=== PATIENT | male | born 1940 | race Caucasian/White ===

== ENCOUNTER 2018-06-11 16:13 | Inpatient (IN) | payer MEDICARE ==
[~2018-06-11] VITALS: Ht 177.8 cm; Wt 49.9 kg
[2018-06-11] MEDS ORDERED: Z GUARD REMEDY PASTE 57 GM TUBE TOP PRN (17:15)
[2018-06-11] MEDS ORDERED: FINA5TAB11 PO (18:07)
[2018-06-11] MEDS ORDERED: AMLO10TA6 PO (18:07)
[2018-06-11] MEDS ORDERED: ASPI-1169 PO (18:07)
[2018-06-11] MEDS ORDERED: METO25TA6 PO ×2 (18:07→18:34)
[2018-06-11] MEDS ORDERED: LOSA25TA13 PO (18:07)
[2018-06-11] MEDS ORDERED: OMEP20CA10 PO (18:07)
[2018-06-11] MEDS ORDERED: CHOL10002 PO (18:07)
[2018-06-11] MEDS ORDERED: ALFU10TA10 PO (18:07)
[2018-06-11] MEDS ORDERED: ACET-2154 PO (18:34)
[2018-06-11] MEDS ORDERED: RIVA10TA PO (18:34)
[2018-06-11] MEDS ORDERED: ZOLP5TAB2 PO (18:34)
[2018-06-11] MEDS ORDERED: MAGN400O6 PO ×2 (18:34)
[2018-06-11] MEDS ORDERED: PANT40TA4 PO (18:34)
--- NOTE | 2018-06-11 18:59 | NUR ---
SBAR report received from Odalys KLEIN at [facility]. Pt received via gurney and transferred safely to bed. Bed in locked and lowest position with side rails up x2, bed alarm on. Pt denies pain at this time, due to last PRN Oxy 5mg administered at 1601 prior to transfer. VSS 134/63, 94, 98.8,20,97% RA. Pt assessed, no acute distress or SOB noted. Pt skin is intact except for previous scar center abdominal midline of abdomen from h/o AAA repair in 2000, current surgical incision to right hip with dressing intact from Right Hip Replacement on 06/[address] Griffith, and BLLE altered skin integrity. Surgical dressing orders endorsed to change PRN soiling and daily. Follow up appointment needed with Dr. Griffith in 2 weeks for wound check and right hip XRay evaluation. Pt on Xarelto 10mg since 06/10 ordered to continue for 4 weeks then switch to ASA only. Pt oriented to room and unit with . ID band placed on right wrist. MRSA swab collected and sent to lab. Pt seen by Dr. Bates and pain regimen discussed, new orders received. Call light placed within reach. Board updated. Will continue to monitor and endorse to oncoming billiard table assembler nurse.
--- NOTE | 2018-06-11 19:15 | NUR ---
Received patient in bed. Alert and verbally responsive. Able to make needs known. Denies any pain and discomfort. No acute distress. No SOB. Kept clean and dry. Abductor pillow in place. All needs attended to promptly. Call light within reach. Will continue to monitor.
[2018-06-11] MEDS ORDERED: ZOLPIDEM 5 MG TABLET PO PRN (19:45)
[2018-06-11 20:00] VITALS: BP 129/68
[2018-06-11] MEDS: ALFUZOSIN HCL 10 MG TAB.SR.24H PO SCH (20:43)
[2018-06-11] MEDS: METOPROLOL TARTRATE 25 MG TABLET PO SCH (20:43)
[2018-06-12] MEDS: HYDROCODONE/APAP 5-325MG TABLET PO PRN ×3 (02:59→13:17)
[2018-06-12 04:00] VITALS: BP 137/69
[2018-06-12 08:03] VITALS: BP 126/56
--- NOTE | 2018-06-12 08:03 | NUR ---
Received pt. in bed with eyes open. A/OX4 and able to make his needs known. Pt. in no acute distress, denies CP or SOB at this time. C/O 04/08 (P.S) on RT. hip, PRN norco administered as order. Pt. stated "I wan't Oxycodone instead of Celeste" Discussed and explained to pt. that this card writer hand will discuss pain regimen with MD accordingly. pt. amenable at this time. All pt. needs promptly attended. Safety measures and precaution in place. Call light and all frequently used items within pt. reach. Will monitor pt. accordingly.
[2018-06-12] MEDS: CHOLECALCIFEROL 1,000 UNIT TABLET PO SCH (08:13)
[2018-06-12] MEDS: FINASTERIDE 5 MG TABLET PO SCH (08:13)
[2018-06-12] MEDS: AMLODIPINE 10 MG TABLET PO SCH (08:14)
[2018-06-12] MEDS: ASPIRIN 81 MG TAB.CHEW PO SCH (08:14)
[2018-06-12] MEDS: METOPROLOL TARTRATE 25 MG TABLET PO SCH ×2 (08:15→20:45)
[2018-06-12] MEDS: LOSARTAN POTASSIUM 25 MG TABLET PO SCH (08:15)
[2018-06-12] MEDS ORDERED: PANTOPRAZOLE SODIUM 40 MG TABLET.DR PO SCH (09:00)
--- NOTE | 2018-06-12 13:37 | NUR ---
Received order from Dr. Bates to D/C Syeda order and start pt. on OxyIR 5 mg po q4h prn for pain. Orders noted and carried out. Pt. made aware and thankful.
[2018-06-12 15:00] VITALS: BP 108/47
[2018-06-12] MEDS: RIVAROXABAN 10 MG TABLET PO SCH (17:46)
--- NOTE | 2018-06-12 18:55 | NUR ---
EOS NOTE: No significant change during this shift. All pt. need attended. All due medications given as ordered. No c/o SOB or CP. Safety measures in place. Call light and all frequently used items in reach. Will endorse to oncoming shift.
[2018-06-12 19:30] VITALS: BP 120/50
[2018-06-12] MEDS: ALFUZOSIN HCL 10 MG TAB.SR.24H PO SCH (20:18)
[2018-06-12] MEDS: OXYCODONE HCL 5 MG TABLET PO PRN (20:20)
[2018-06-13] MEDS: OXYCODONE HCL 5 MG TABLET PO PRN ×4 (03:16→20:09)
[2018-06-13 04:00] VITALS: BP 115/51
[2018-06-13 04:19] LABS: *BILIRUBIN,URIN NEGATIVE (NEGATIVE); *BLOOD, URINE NEGATIVE (NEGATIVE); *CLARITY,URINE CLEAR (CLEAR); *COLOR,URINE YELLOW (YELLOW); *KETONES,URINE NEGATIVE (NEGATIVE); *PROTEIN,URINE TRACE (NEGATIVE); LEUKOCYTE ESTERASE ,URINE NEGATIVE (NEGATIVE); NITRITE, URINE NEGATIVE (NEGATIVE); PH,URINE 7.5 (5.0-8.0); UGLUCOSE NEGATIVE (NEGATIVE)
[2018-06-13 04:26] LABS: BACTERIA,URINE NONE SEEN /HPF (NONE SEEN); RBC,URINE 0-3 /HPF (0-3); SQUAMOUS EPITHELIAL CELL,UR FEW /HPF (NONE SEEN); WBC,URINE 0-3 /HPF (0-3)
[2018-06-13] MEDS: MAGNESIUM HYDROXIDE 30 ML LIQUID UDC PO PRN (06:15)
[2018-06-13] MEDS: PANTOPRAZOLE SODIUM 40 MG TABLET.DR PO SCH (06:16)
[2018-06-13 07:11] LABS: BASOPHILS % (AUTO) 0.4 % (0.0-2.0); EOSINOPHILS # (AUTO) 0.2 K/uL (0.0-0.7); HEMATOCRIT 23.9 % (36.7-47.1); HEMOGLOBIN 8.4 g/dL (12.5-16.3); LYMPHOCYTES # (AUTO) 1.1 K/uL (20.0-40.0); LYMPHOCYTES % (AUTO) 14.3 % (20.5-51.5); MEAN CORPUSCULAR HEMOGLOBIN 34.5 uug (23.8-33.4); MEAN CORPUSCULAR HGB CONC 35 g/dL (32.5-36.3); MEAN CORPUSCULAR VOLUME 98.6 fL (73.0-96.2); MONOCYTES # (AUTO) 0.8 K/uL (2.0-10.0); MONOCYTES % (AUTO) 10.5 % (0.0-11.0); NEUTROPHILS # (AUTO) 5.3 K/uL (1.8-8.9); NEUTROPHILS % (AUTO) 71.8 % (38.5-71.5); PLATELET COUNT (AUTO) 164 K/uL (152-348); WHITE BLOOD COUNT (AUTO) 7.4 K/uL (3.6-10.2)
[2018-06-13 07:20] LABS: RED BLOOD CELL COUNT(AUTO) 2.42 MIL/uL (4.06-5.63)
[2018-06-13 07:36] LABS: IRON, SERUM 30 ug/dL (50-175)
[2018-06-13 07:59] LABS: ALANINE AMINOTRANSFERASE 73 U/L (16-63); ALKALINE PHOSPHATASE 95 U/L (50-136); ASPARTATE AMINOTRANSFERASE 73 U/L (15-37); BILIRUBIN,TOTAL 1.3 mg/dL (0.2-1.0); CARBON DIOXIDE 33 mmol/L (21-32); CHLORIDE 100 mmol/L (98-107); CHOLESTEROL 87 mg/dL (<200); CREATININE 1.3 mg/dL (0.6-1.3); GLUCOSE 128 mg/dL (74-106); HDL CHOLESTEROL 37 mg/dL (40-60); MAGNESIUM 1.9 mg/dL (1.8-2.4); PHOSPHOROUS 2.7 mg/dL (2.5-4.9); POTASSIUM 3.5 mmol/L (3.5-5.1); TOTAL PROTEIN, SERUM 5.6 g/dL (6.4-8.2); TRIGLYCERIDES 64 MG/DL (30-150); UREA NITROGEN, BLOOD 27 mg/dL (7-18)
[2018-06-13 08:25] LABS: THYROID STIMULATING HORMONE 3.353 mIU/mL (0.358-3.740)
[2018-06-13] MEDS: AMLODIPINE 10 MG TABLET PO SCH (08:25)
[2018-06-13] MEDS: ASPIRIN 81 MG TAB.CHEW PO SCH (08:25)
[2018-06-13] MEDS: CHOLECALCIFEROL 1,000 UNIT TABLET PO SCH (08:25)
[2018-06-13] MEDS: LOSARTAN POTASSIUM 25 MG TABLET PO SCH (08:25)
[2018-06-13] MEDS: FINASTERIDE 5 MG TABLET PO SCH (08:25)
[2018-06-13] MEDS: METOPROLOL TARTRATE 25 MG TABLET PO SCH ×2 (08:26→20:08)
--- NOTE | 2018-06-13 09:08 | NUR ---
Received pt. in bed, A/OX4. Pt. able to make his needs known. Comfortable in no acute distress. All pt. needs attended promptly. Safety measures and precaution in place. Call light and all frequently used items within pt. reach. C/O Rt. hip pain (4/10 p.s) OxyIR given as ordered. All due AM medications given as ordered and tolerated well. Will obtain order from MD. Will continue to monitor pt. accordingly
[2018-06-13 11:02] VITALS: BP 118/61
[2018-06-13] MEDS: CYANOCOBALAMIN 1000 MCG/ML VIAL IM SCH (11:41)
[2018-06-13 16:04] VITALS: BP 113/51
[2018-06-13] MEDS: RIVAROXABAN 10 MG TABLET PO SCH (17:25)
--- NOTE | 2018-06-13 18:05 | NUR ---
EOS NOTE: No significant change during this shift. All pt. need attended and met. All due medications given as ordered. No c/o SOB or CP. Pt. participated with PT/OT/ST, tolerated well. Kept pt. clean and dry throughout this shift. Rt. hip surgical dressing change as ordered, no s/sx of infection at surgical site. Obtained order from Dr. Bates for RT. hip x-ray for f/u appointment on 06/17/[address] Griffith (Ortho). Hgb/Hct 8.4/23.[address] Robles with new order for EKG and VIT b12 IM. Family visited pt. today for emotional support. Safety measures in place. Call light and all frequently used items in reach. Will endorse to oncoming shift.
[2018-06-13] MEDS: ALFUZOSIN HCL 10 MG TAB.SR.24H PO SCH (20:08)
[2018-06-13 20:21] VITALS: BP 117/54
[2018-06-13] MEDS: ACETAMINOPHEN 325 MG TABLET PO PRN (21:40)
[2018-06-14 05:00] VITALS: BP 118/55
[2018-06-14] MEDS: PANTOPRAZOLE SODIUM 40 MG TABLET.DR PO SCH (06:05)
[2018-06-14] MEDS: ASPIRIN 81 MG TAB.CHEW PO SCH (08:12)
[2018-06-14] MEDS: FINASTERIDE 5 MG TABLET PO SCH (08:17)
[2018-06-14] MEDS: METOPROLOL TARTRATE 25 MG TABLET PO SCH ×2 (08:18→20:42)
[2018-06-14] MEDS: CHOLECALCIFEROL 1,000 UNIT TABLET PO SCH (08:19)
[2018-06-14] MEDS: OXYCODONE HCL 5 MG TABLET PO PRN ×3 (08:19→20:47)
[2018-06-14] MEDS: LOSARTAN POTASSIUM 25 MG TABLET PO SCH (08:19)
[2018-06-14] MEDS: CYANOCOBALAMIN 1000 MCG/ML VIAL IM SCH (08:20)
[2018-06-14] MEDS: AMLODIPINE 10 MG TABLET PO SCH (08:20)
[2018-06-14 08:29] VITALS: BP 110/57
--- NOTE | 2018-06-14 09:23 | NUR ---
Patient continue pain management for right hip fracture. Shower done with OT. refuse therapy this AM, verbalize," i feel weak". MD Bates aware. ordered CBC and BMP. not in distress. will continue monitor
[2018-06-14 12:31] LABS: BASOPHILS % (AUTO) 0.2 % (0.0-2.0); EOSINOPHILS # (AUTO) 0.1 K/uL (0.0-0.7); EOSINOPHILS % (AUTO) 1.2 % (0.0-7.0); HEMATOCRIT 23.4 % (36.7-47.1); HEMOGLOBIN 8.3 g/dL (12.5-16.3); MEAN CORPUSCULAR HEMOGLOBIN 34.5 uug (23.8-33.4); MEAN CORPUSCULAR HGB CONC 35 g/dL (32.5-36.3); MEAN CORPUSCULAR VOLUME 97.9 fL (73.0-96.2); NEUTROPHILS # (AUTO) 8.8 K/uL (1.8-8.9); NEUTROPHILS % (AUTO) 80.6 % (38.5-71.5); PLATELET COUNT (AUTO) 225 K/uL (152-348); WHITE BLOOD COUNT (AUTO) 10.9 K/uL (3.6-10.2)
[2018-06-14 12:32] LABS: RED BLOOD CELL COUNT(AUTO) 2.39 MIL/uL (4.06-5.63)
[2018-06-14 12:37] LABS: CARBON DIOXIDE 29 mmol/L (21-32); CHLORIDE 100 mmol/L (98-107); CREATININE 1.3 mg/dL (0.6-1.3); GLUCOSE 138 mg/dL (74-106); POTASSIUM 4.2 mmol/L (3.5-5.1); UREA NITROGEN, BLOOD 28 mg/dL (7-18)
--- NOTE | 2018-06-14 13:37 | NUR ---
INTERDISCIPLINARY TEAM CONFERENCE
[2018-06-14 16:32] VITALS: BP 103/50
[2018-06-14] MEDS: RIVAROXABAN 10 MG TABLET PO SCH (17:19)
[2018-06-14 20:00] VITALS: BP 118/58
[2018-06-14] MEDS: ALFUZOSIN HCL 10 MG TAB.SR.24H PO SCH (20:42)
--- NOTE | 2018-06-14 21:40 | NUR ---
Received pt in bed and watching TV. AAO x4. No acute distress noted. VSS. C/o pain on lower back. PRN oxyir given as ordered. Abduction pillow in placed. Slightly turned and repositioned using pillow under the back. Safety measures maintained. Call light and personal belongings within reach. Will continue to monitor.
[2018-06-15 05:00] VITALS: BP 115/57
[2018-06-15] MEDS: PANTOPRAZOLE SODIUM 40 MG TABLET.DR PO SCH (06:27)
[2018-06-15 08:01] VITALS: BP 119/52
[2018-06-15] MEDS: CHOLECALCIFEROL 1,000 UNIT TABLET PO SCH (08:55)
[2018-06-15] MEDS: OXYCODONE HCL 5 MG TABLET PO PRN ×2 (08:55→15:53)
[2018-06-15] MEDS: AMLODIPINE 10 MG TABLET PO SCH (08:56)
[2018-06-15] MEDS: LOSARTAN POTASSIUM 25 MG TABLET PO SCH (08:56)
[2018-06-15] MEDS: ASPIRIN 81 MG TAB.CHEW PO SCH (08:56)
[2018-06-15] MEDS: FINASTERIDE 5 MG TABLET PO SCH (08:56)
[2018-06-15] MEDS: CYANOCOBALAMIN 1000 MCG/ML VIAL IM SCH (08:56)
[2018-06-15] MEDS: METOPROLOL TARTRATE 25 MG TABLET PO SCH (09:51)
--- NOTE | 2018-06-15 11:23 | NUR ---
Patient laboratory result HGB 8.3 WBC 10.9 relayed to MD Robles. no new order. no dark urine observed as of this time. will continue monitor
[2018-06-15] MEDS: ACETAMINOPHEN 325 MG TABLET PO PRN (12:38)
--- NOTE | 2018-06-15 13:23 | NUR ---
Patient continue on pain management with good effect. not in distress. dressing change done with no signs of infection noted. will continue monitor
[2018-06-15 16:28] VITALS: BP 112/59
[2018-06-15] MEDS: RIVAROXABAN 10 MG TABLET PO SCH (17:10)
--- NOTE | 2018-06-15 18:19 | NUR ---
sodium 134 result relayed to MD. no new order. no complaint of pain/discomfort. not in distress. will continue monitor
--- NOTE | 2018-06-15 19:30 | NUR ---
Hand-off report received from Radhika KLEIN with bedside inspection. Pt resting without complaint. Right hip dressing CDI. Denies any numbness and tingling in extremities X4.
[2018-06-15 19:52] VITALS: BP 103/51
--- NOTE | 2018-06-15 23:30 | NUR ---
Oxycodone 1 tab for stated right hip pain 12/06. Uses urinal noted dark brown urine approx. 150 to 200 cc each time. Denies burning or pain with urination.
[2018-06-15] MEDS: ALFUZOSIN HCL 10 MG TAB.SR.24H PO SCH (23:47)
[2018-06-16] MEDS: METOPROLOL TARTRATE 25 MG TABLET PO SCH ×3 (00:27→21:00)
[2018-06-16 05:40] VITALS: BP 108/53
[2018-06-16] MEDS: PANTOPRAZOLE SODIUM 40 MG TABLET.DR PO SCH (06:35)
--- NOTE | 2018-06-16 07:15 | NUR ---
Hand-off report given to Ilya KLEIN who assumed care of pt at this time. Pt awake in bed watching TV without complaint.
[2018-06-16 08:01] VITALS: BP 110/51
[2018-06-16] MEDS: CHOLECALCIFEROL 1,000 UNIT TABLET PO SCH (08:14)
[2018-06-16] MEDS: FINASTERIDE 5 MG TABLET PO SCH (08:14)
[2018-06-16] MEDS: CYANOCOBALAMIN 1000 MCG/ML VIAL IM SCH (08:14)
[2018-06-16] MEDS: ASPIRIN 81 MG TAB.CHEW PO SCH (08:14)
[2018-06-16] MEDS: AMLODIPINE 10 MG TABLET PO SCH (08:17)
[2018-06-16] MEDS: LOSARTAN POTASSIUM 25 MG TABLET PO SCH (08:17)
[2018-06-16] MEDS: OXYCODONE HCL 5 MG TABLET PO PRN ×2 (09:09→13:47)
--- NOTE | 2018-06-16 09:22 | NUR ---
Received pt. in bed, A/OX4 verbally responsive and able to make his needs known. Comfortable in no acute distress. All pt. needs attended promptly. Safety measures and precaution in place. Call light and all frequently used items within pt. reach. C/O Rt. hip pain (9/10 p.s) OxyIR given as ordered. All due AM medications given as ordered and tolerated well. Will continue to monitor pt. accordingly
[2018-06-16 16:06] VITALS: BP 98/43
[2018-06-16] MEDS: RIVAROXABAN 10 MG TABLET PO SCH (17:30)
--- NOTE | 2018-06-16 18:33 | NUR ---
EOS NOTE: No significant change during this shift. All pt. need attended and met. All due medications given as ordered. No c/o SOB or CP. Pt. participated with PT/OT, tolerated well. Kept pt. clean and dry throughout this shift. Rt. hip surgical dressing change as ordered, no s/sx of infection at surgical site. RT. hip x-ray done today for f/u appointment on 06/17/[address] Griffith (Ortho). Family visited pt. today for emotional support. Safety measures in place. Call light and all frequently used items in reach. Will endorse to oncoming shift.
--- NOTE | 2018-06-16 19:20 | NUR ---
Hand-Off Report received from Ilya KLEIN. Assumed care of pt at this time.
[2018-06-16 20:20] VITALS: BP 102/55
--- NOTE | 2018-06-16 20:30 | NUR ---
Denies right hip pain. Right lateral thigh dressing clean dry and intact. B/P 102/55. Pt. education concerning effects of Uroxatral and Lopressor combined. Plan: to hold Lopressor per doctor parameters for SBP<100. Pt stated understood. Denies any signs and symptoms of light-headedness etc. Enc. hydration. Denies chest pain or SOB. Continue to monitor and assist as needed.
[2018-06-16] MEDS: ALFUZOSIN HCL 10 MG TAB.SR.24H PO SCH (22:12)
--- NOTE | 2018-06-17 05:30 | NUR ---
Bed bath given. Lotion applied all over. Thermal PJs donned. Chart packet prepared including copy of Xray to go with pt. for follow-up Post-op Doctor Appt. Anticipating transport at 0830. Resting in bed at this time awaiting transport. Continue to denie pain or needs.
[2018-06-17 05:45] VITALS: BP 110/55
[2018-06-17] MEDS: PANTOPRAZOLE SODIUM 40 MG TABLET.DR PO SCH (05:56)
--- NOTE | 2018-06-17 07:10 | NUR ---
Hand-off report given to on-coming nurse Ilya KLEIN. Pt ready and waitng for transport to Ortho surgeon follow-up visit. Chart packet to go with pt. Pt in no distress. Denies pain. Dressing intact on right lateral thigh. Relinquished care of pt at this time.
[2018-06-17 07:20] VITALS: BP 102/52
[2018-06-17] MEDS: ASPIRIN 81 MG TAB.CHEW PO SCH (08:09)
[2018-06-17] MEDS: CHOLECALCIFEROL 1,000 UNIT TABLET PO SCH (08:10)
[2018-06-17] MEDS: METOPROLOL TARTRATE 25 MG TABLET PO SCH ×2 (08:10→20:32)
[2018-06-17] MEDS: AMLODIPINE 10 MG TABLET PO SCH (08:10)
[2018-06-17] MEDS: FINASTERIDE 5 MG TABLET PO SCH (08:11)
[2018-06-17] MEDS: LOSARTAN POTASSIUM 25 MG TABLET PO SCH (08:11)
[2018-06-17] MEDS: CYANOCOBALAMIN 1000 MCG/ML VIAL IM SCH (08:11)
[2018-06-17] MEDS: OXYCODONE HCL 5 MG TABLET PO PRN ×2 (09:08→13:23)
--- NOTE | 2018-06-17 09:35 | NUR ---
Received pt. in bed, A/OX4 verbally responsive and able to make his needs known. Comfortable in no acute distress. All pt. needs attended promptly. Safety measures and precaution in place. Call light and all frequently used items within pt. reach. C/O Rt. hip pain (7/10 p.s) OxyIR given as ordered. All due AM medications given as ordered and tolerated well. Pt. with scheduled appointment with Dr. Griffith (Ortho) @ 0930 with pickup time @ 0830. [facility] staff on-site @ 0855, report given to receiving staff with no further questions. Pt. packet given to receiving staff. Pt. left the facility @ 0910 in stable condition.
--- NOTE | 2018-06-17 10:50 | NUR ---
Pt. returned in the facility @ 1040 in stable condition. No new order from Dr. Griffith (Ortho), per progress note, pt. is to return to his office in 4 weeks. Pt. made an appointment with Dr. Griffith for 07/15/18. Continue Xarelto as previously ordered and WBAT on RLE.
[2018-06-17 15:39] VITALS: BP 106/48
[2018-06-17] MEDS: MAGNESIUM HYDROXIDE 30 ML LIQUID UDC PO PRN (17:05)
[2018-06-17] MEDS: RIVAROXABAN 10 MG TABLET PO SCH (17:05)
--- NOTE | 2018-06-17 17:48 | NUR ---
EOS NOTE: No significant change during this shift. All pt. need attended and met. All due medications given as ordered. No c/o SOB or CP. Pt. participated with PT/OT, tolerated well. Kept pt. clean and dry throughout this shift. MOM given prn for constipation. Safety measures in place. Call light and all frequently used items in reach. Will endorse to oncoming shift.
[2018-06-17 19:39] VITALS: BP 113/56
[2018-06-17] MEDS: ACETAMINOPHEN 325 MG TABLET PO PRN (20:32)
[2018-06-17] MEDS: ALFUZOSIN HCL 10 MG TAB.SR.24H PO SCH (20:32)
--- NOTE | 2018-06-17 20:47 | NUR ---
Received pt resting in bed and watching TV. AAO x4. No acute distress noted. No c/o pain or discomfort. Tylenol given for temperature 99.4 F. Safety measures maintained. Bed alarm on. Call light and personal belongings within reach. Will continue to monitor.
[2018-06-18] MEDS: ACETAMINOPHEN 325 MG TABLET PO PRN (05:35)
[2018-06-18 05:57] VITALS: BP 112/66
[2018-06-18] MEDS: PANTOPRAZOLE SODIUM 40 MG TABLET.DR PO SCH (06:03)
[2018-06-18 08:00] VITALS: BP 119/53
[2018-06-18] MEDS: FINASTERIDE 5 MG TABLET PO SCH (08:59)
[2018-06-18] MEDS: CHOLECALCIFEROL 1,000 UNIT TABLET PO SCH (08:59)
[2018-06-18] MEDS: ASPIRIN 81 MG TAB.CHEW PO SCH (09:00)
[2018-06-18] MEDS: LOSARTAN POTASSIUM 25 MG TABLET PO SCH (09:01)
[2018-06-18] MEDS: METOPROLOL TARTRATE 25 MG TABLET PO SCH ×2 (09:01→22:41)
[2018-06-18] MEDS: CYANOCOBALAMIN 1000 MCG/ML VIAL IM SCH (09:02)
[2018-06-18] MEDS: AMLODIPINE 10 MG TABLET PO SCH (09:02)
[2018-06-18] MEDS ORDERED: NAPROXEN 250 MG TABLET PO PRN ×2 (09:15→15:00)
--- NOTE | 2018-06-18 10:55 | NUR ---
SBAR report and Pt received this morning, resting in bed, AAOx4. Pt assessed, reports Right hip pain level tolerable with 250mg Naprosyn, administered per PRN orders. No acute distress, or SOB at this time. Pt complaint with routine medication administration. Pt seen by MD, new orders received. No s/s of infection to right hip incision, wound care provided as ordered. Pt assisted to bathroom in attempt to relieve constipation, no BM, voiding x1. Pt's visiting at bedside. Bed in locked and lowest position with sided rails up. All comfort and safety needs met. Call light and personal belongings placed within reach. Will continue to monitor.
[2018-06-18] MEDS: DOCUSATE SODIUM 100 MG CAPSULE PO SCH (17:42)
[2018-06-18] MEDS: RIVAROXABAN 10 MG TABLET PO SCH (17:43)
[2018-06-18 20:46] VITALS: BP 105/56
[2018-06-18] MEDS: ALFUZOSIN HCL 10 MG TAB.SR.24H PO SCH (22:42)
[2018-06-18] MEDS: SENNOSIDES 1 TABLET PO SCH (22:42)
[2018-06-19 05:51] VITALS: BP 124/56
[2018-06-19] MEDS: PANTOPRAZOLE SODIUM 40 MG TABLET.DR PO SCH (06:14)
--- NOTE | 2018-06-19 07:49 | NUR ---
SBAR report received this morning. Pt resting in bed. Pt assessed AAOx4. No s/s of acute distress or SOB noted. Bed in locked and lowest position with side rails up and alarm on. Board updated. Call light within reach. All safety and comfort measures in place, will continue to monitor.
[2018-06-19 08:01] VITALS: BP 112/53
[2018-06-19] MEDS: LOSARTAN POTASSIUM 25 MG TABLET PO SCH (09:12)
[2018-06-19] MEDS: FINASTERIDE 5 MG TABLET PO SCH (09:13)
[2018-06-19] MEDS: CHOLECALCIFEROL 1,000 UNIT TABLET PO SCH (09:13)
[2018-06-19] MEDS: ASPIRIN 81 MG TAB.CHEW PO SCH (09:13)
[2018-06-19] MEDS: DOCUSATE SODIUM 100 MG CAPSULE PO SCH ×2 (09:14→17:26)
[2018-06-19] MEDS: METOPROLOL TARTRATE 25 MG TABLET PO SCH ×2 (09:14→20:51)
[2018-06-19] MEDS: AMLODIPINE 10 MG TABLET PO SCH (09:14)
[2018-06-19] MEDS: CYANOCOBALAMIN 1000 MCG/ML VIAL IM SCH (09:17)
[2018-06-19 15:53] VITALS: BP 98/44
[2018-06-19] MEDS: RIVAROXABAN 10 MG TABLET PO SCH (17:29)
--- NOTE | 2018-06-19 20:40 | NUR ---
NSG: Received pt laying in bed, plesant upon approach. alert and oriented x4. denies pain or discomfort at this time.No acute distress noted. Safety measures maintained. Bed alarm on. Call light and personal belongings within reach. continue plan of care.
[2018-06-19] MEDS: SENNOSIDES 1 TABLET PO SCH (20:45)
[2018-06-19] MEDS: ALFUZOSIN HCL 10 MG TAB.SR.24H PO SCH (20:46)
[2018-06-19 20:54] VITALS: BP 113/61
--- NOTE | 2018-06-20 05:48 | NUR ---
nsg: slept well through the night. no c/o pain or discomfort at this time. uses urinal to void urine. resting in bed at this time, call light w/in reach.
[2018-06-20] MEDS: PANTOPRAZOLE SODIUM 40 MG TABLET.DR PO SCH (06:03)
[2018-06-20] MEDS: FINASTERIDE 5 MG TABLET PO SCH (08:22)
[2018-06-20] MEDS: ASPIRIN 81 MG TAB.CHEW PO SCH (08:22)
[2018-06-20] MEDS: CHOLECALCIFEROL 1,000 UNIT TABLET PO SCH (08:22)
[2018-06-20] MEDS: CYANOCOBALAMIN 1000 MCG/ML VIAL IM SCH (08:22)
[2018-06-20] MEDS: METOPROLOL TARTRATE 25 MG TABLET PO SCH (08:23)
[2018-06-20] MEDS: LOSARTAN POTASSIUM 25 MG TABLET PO SCH (08:23)
[2018-06-20] MEDS: DOCUSATE SODIUM 100 MG CAPSULE PO SCH (08:23)
[2018-06-20] MEDS: AMLODIPINE 10 MG TABLET PO SCH (08:24)
[2018-06-20 08:39] VITALS: BP 102/56
--- NOTE | 2018-06-20 09:23 | NUR ---
Received patient awake in bed. Alert and orientedx4. For discharge this AM according to patient in stable condition. Son will apple picking supervisor via private car. MD Sanii aware. MD Bates notified.
--- NOTE | 2018-06-20 11:07 | NUR ---
Patient discharge to home around 11am with Son via private transport in stable condition. MD Robb and MD Saini notified. medication list faxed to [facility] and was given to patient. Instruction and ff up appointment given. verbalize understanding. will continue monitor
== END 2018-06-20 11:00 | disposition home health service (06) | DRG 559 ==
PROVIDERS: ADMIT Physical Medicine & Rehabilitation Pain Medicine; ATTEND Physical Medicine & Rehabilitation Pain Medicine
DX: Z47.1 Aftercare following joint replacement surgery (principal); E43 Unspecified severe protein-calorie malnutrition; N17.0 Acute kidney failure with tubular necrosis; D68.59 Other primary thrombophilia; I10 Essential (primary) hypertension; Z86.79 Personal history of other diseases of the circulatory system; Z96.641 Presence of right artificial hip joint; R26.9 Unspecified abnormalities of gait and mobility; E53.8 Deficiency of other specified B group vitamins; F10.11 Alcohol abuse, in remission; F17.210 Nicotine dependence, cigarettes, uncomplicated; J44.9 Chronic obstructive pulmonary disease, unspecified; K21.9 Gastro-esophageal reflux disease without esophagitis; N40.0 Benign prostatic hyperplasia without lower urinary tract symptoms; K57.90 Diverticulosis of intestine, part unspecified, without perforation or abscess without bleeding; N26.1 Atrophy of kidney (terminal); Z91.81 History of falling
CPT/HCPCS: 36415; 71045; 73501; 73502; 82652; 83550; 83735; 84100; 84443; 85025; 85610; 87086; 92507; 92523; 92526; 92610; 93005; 97110; 97112; 97116; 97530; 97535; A4663; J3420; J8499